=== PATIENT | female | born 1940 | race Caucasian/White ===

== ENCOUNTER 2020-09-17 00:25 | Emergency (ER) | payer MEDICARE, OTHER, SELFPAY ==
[2020-09-17] VITALS (32 sets, daily range): BP systolic 76–103; BP diastolic 36–57; PULSE 85–117; RESP 18–32; TEMP 35.6–36.5; O2SAT 92–98
--- NOTE | ~2020-09-17 | XR_ITS ---
EXAMINATION: XR chest 1V portable DATE: 09/17/2020 01:30 INDICATION: Shortness of breath TECHNIQUE: frontal view of the chest was obtained. COMPARISON: Chest radiograph dated 06/21/2017 FINDINGS: Small amount of free intraperitoneal gas below the mildly elevated right hemidiaphragm. Mild bibasila r opacities which could represent atelectasis and/or pneumonia. Nodular opacity in the right midlung zone projected between the posterior right fifth and sixth ribs. Calcified right lower lobe nodule an d calcified right hilar lymph nodes consistent with old granulomatous disease. No pleural effusion or pneumothorax. The cardiomediastinal silhouette is normal. IMPRESSION: 1. Free intraperitoneal gas below the right hemidiaphragm. See subsequent CT report at 2:35 AM for fu rther detail. 2. Bibasilar opacities which could represent atelectasis and/or pneumonia. 3. Small nodular opacity in the right midlung zone which could also be infectious/inflammatory in esvin ology although differential includes primary bronchogenic is normal. Consider either follow-up to res olution or chest CT for further evaluation. Reviewed, dictated and finalized at location A. ER OUT IMPRESSION: 1. Free intraperitoneal gas below the right hemidiaphragm. See subsequent CT re port at 2:35 AM for further detail. 2. Bibasilar opacities which could represent atelectasis and/or pneumonia. 3. Small nodular opacity in the right midlung zone which could also be infectio us/inflammatory in etiology although differential includes primary bronchogenic is normal. Consider either follow-up to resolution or chest CT for further mary luation.
--- NOTE | ~2020-09-17 | CT_ITS ---
EXAMINATION: CT abdomen pelvis wo con DATE: 09/17/2020 02:39 INDICATION: Perforated bowel with free intraperitoneal gas seen on chest radiograph. TECHNIQUE: Computed tomography (CT) of the abdomen and pelvis was performed without intravenous contr ast. Automated exposure control and iterative reconstruction technique were employed. The dose-length product was 558.07 mGy-cm. COMPARISON: 01/19/2018 FINDINGS: 12 mm subpleural right lower lobe nodule with some surrounding groundglass opacity most likely infect ious/inflammatory in etiology although malignancy either primary or metastatic is not excludable. Ate lectasis in the lingula and in the dependent bilateral lower lobes. Calcified right lower lobe nodule and calcified right hilar lymph nodes consistent with old granulomatous disease. Heart size is yvette l. Atherosclerotic coronary artery calcification and aortic valve calcific lesion. No pericardial or pleural effusion. Small sliding-type hiatal hernia. Cholecystectomy clips the gallbladder fossa. A couple well-defined low-attenuation hepatic cysts the largest measuring 1.8 cm in the right hepatic lobe. No interval change in an 8 mm slightly hyperdense nodule along the posterior margin of the right hepatic lobe which given greater than 2 years of stab ility is most readily benign. Multiple splenic calcification is consistent with old granulomatous dis ease. Pancreas and bilateral adrenal glands are normal. 1.8 cm low-attenuation left renal cyst and mi llimeter hyperdense proteinaceous/hemorrhagic cyst at the left kidney. There are additional lesions i n both kidneys measuring 12 mm on the left and 8 mm on the right which are of intermediate attenuatio n most likely additional proteinaceous/hemorrhagic cyst although differential includes solid neoplasm such as renal cell carcinoma. There is mild colonic diverticulosis with a sigmoid predominance. There is wall thickening at the pro ximal sigmoid colon with surrounding inflammatory stranding consistent with diverticulitis. There is small amount free intraperitoneal gas and fluid scattered throughout the abdomen and pelvis consisten t with perforated diverticulitis. No abscess. Bladder is normal. The uterus is not identified and has likely been surgically resected. There is scattered calcified atherosclerosis of the aorta and many of the other arteries. Mild scattered degenerative skeletal changes. IMPRESSION: 1. Perforated sigmoid diverticulitis with small amount of free intraperitoneal gas and fluid. No absc ess. 2. Nodular airspace disease in the right lower lobe most likely infectious/inflammatory in etiology a lthough differential includes malignancy either primary or metastatic. An additional nodular opacitie s seen in the right midlung zone on prior chest radiograph and would recommend dedicated chest CT for further evaluation and to establish baseline for any follow-up imaging. 3. A couple indeterminate bilateral renal lesions, the largest on the left measuring 12 mm which are unchanged 2018, most likely proteinaceous/hemorrhagic cyst although differential includes very slowly growing renal cell carcinoma. Depending on how this would affect clinical management could consider follow-up pre and postcontrast MRI or CT for further evaluation. 4. Small sliding-type hiatal hernia. Reviewed, dictated and finalized at location A. [facility] IMPRESSION: 1. Perforated sigmoid diverticulitis with small amount of free intraperitoneal gas and fluid. No abscess. 2. Nodular airspace disease in the right lower lobe most likely infectious/infl ammatory in etiology although differential includes malignancy either primary o r metastatic. An additional nodular opacities seen in the right midlung zone on prior chest radiograph and would recommend
--- NOTE | 2020-09-17 00:50 | ECG_ITS ---
Measurements Intervals [place] Rate: 89 P: 56 CA: 184 QRS: -19 QRSD: 104 T: 53 QT: 352 QTc: 429 Interpretive Statements SINUS RHYTHM EARLY PRECORDIAL R/S TRANSITION MINIMAL Q WAVES- LATERAL LEADS INFERIOR INFARCT, AGE INDETERMINATE ABNORMAL ECG Electronically Signed On 09-17-2020 6:54:52 GRAIN [employer]ER by Tobi Tellez D.O.
--- NOTE | 2020-09-17 00:59 | ED.WEAKNESS ---
HPI - Weakness General Chief complaint: Weakness Stated complaint: Weakness Time Seen by Provider: 09/17/20 00:45 Source: patient and family Mode of arrival: ambulatory Limitations: altered mental status History of Present Illness HPI Narrative: She evidently has been somewhat slow to respond today to family. She took a tramadol 50mg early this am, and has had a more slow, but relatively clear speech since then. She evidently was weak enough that she was stuck on the toilet for quite some time, too weak to get up. She is brought in by family who recognized she was not feeling well. MD Complaint: generalized weakness Duration: progressively worsening Location: generalized Severity: moderate Relieving factors: none Exacerbating factors: none Context: new medication Associated symptoms: other (she denies any chest pain today) Related Data Home Medications Medication Instructions Recorded Confirmed aspirin 81 mg tablet,delayed 81 mg PO DAILY 07/09/19 09/17/20 release atorvastatin 40 mg tablet 40 mg PO DAILY 07/09/19 09/17/20 diclofenac sodium 75 mg 75 mg PO BID 07/09/19 09/17/20 tablet,delayed release alendronate 70 mg PO WEEKLY 09/17/20 09/17/20 calcium carbonate-vitamin D3 [All 1 tablet PO BID 09/17/20 09/17/20 Day Calcium] cyanocobalamin (vitamin B-12) 500 mcg PO DAILY 09/17/20 09/17/20 [Vitamin B-12] tramadol 50 mg PO PRN PRN 09/17/20 09/17/20 Allergies Allergy/AdvReac Type Severity Reaction Status Date / Time alendronate sodium [Fosamax] Allergy Unknown Unknown Verified 07/09/19 12:36 codeine Allergy Unknown Unknown Verified 07/09/19 12:36 Review of Systems Constitutional: Comments: Evidently she had chills the morning of 09/16/2019 Eyes: Eyes: Reports no additional eye complaints ENT: Reports system reviewed and no additional complaints, except as documented Cardiovascular: Cardiovascular: Reports no additional cardiovascular complaints Respiratory: Respiratory: Reports dyspnea Gastrointestinal: Gastrointestinal: Reports no additional gastrointestinal complaints Genitourinary: Genitourinary: Reports no additional female genitourinary complaints Musculoskeletal: Musculoskeletal: Reports no additional musculoskeletal complaints Integumentary/Breasts: Skin/Breast: Reports system reviewed and no additional complaints, except as docu Neurologic: Reports system reviewed and no additional complaints, except as documented Psychiatric: Psychiatric: Reports no additional psychiatric complaints Endocrine: Endocrine: Reports no additional endocrine complaints Hematologic/Lymphatic: Hematologic/Lymphatic: Reports no additional hematologic/lymphatic complaints Allergic/Immunologic: Allergic/Immunologic: Reports no additional allergic/immunologic complaints PMF Past Medical History Medical History GERD (gastroesophageal reflux disease) Hyperlipidemia Hypertension Hypothyroidism Osteoarthritis Osteoporosis Surgical History Surgical History History of cholecystectomy History of hysterectomy History of tubal ligation Family History Family History Sister Family history of pancreatic cancer Breast cancer Mother Familial Alzheimer's disease of late onset Social History Social History Smoking status: Never smoker Additional living arrangements comments: . Gender identity (if verbalized by the patient): Female Exam Const: Orientation/consciousness: patient oriented x3 Limitations: altered mental status Eyes: Conjunctivae: conjunctivae normal Neck: Neck: normal visual inspection Chest: Chest palpation & inspection: normal inspection of the chest Resp: Effort & Inspection: normal respiratory effort Auscultation: clear to auscultation bilaterally Cardio: Rate: re
[2020-09-17] MEDS: SODIUM CHLORIDE 0.9% IV 1,000 ML 500 ML IV CONT (01:10)
[2020-09-17 01:31] LABS: Hematocrit 31.8 % (35.0-42.0); Hemoglobin 10.6 g/dL (11.7-13.8); Mean Corpuscular HGB Conc 33.3 g/dL (32.0-36.0); Mean Platelet Volume 9.1 fl (9.2-11.8); Platelet Count Result 372 K/mm3 (150-420); Red Blood Count 3.42 M/mm3 (4.20-5.40); Red Cell Distribution Width 13.5 % (11.6-14.4); White Blood Count 18.7 K/mm3 (4.8-10.8)
[2020-09-17 01:37] LABS: Alanine Aminotransferase 9 U/L (14-59); Albumin Level 2.5 g/dL (3.4-5.0); Alkaline Phosphatase 74 U/L (46-116); Anion Gap 14 mmol/L (8-16); Aspartate Amino Transferase 21 U/L (15-37); BNP 114 pg/mL (0-100); Blood Urea Nitrogen 48 mg/dL (7-18); Calcium 10.2 mg/dL (8.5-10.1); Carbon Dioxide 23 mmol/L (21-32); Chloride 93 mmol/L (98-108); Estimated CRCL calculation 16 ml/min; Estimated Glomerular Filt Rate 17; Glucose 106 mg/dL (70-99); Osmolality Calculated 282 mOsm/kg (285-295); Phosphorus 1.6 mg/dL (2.6-4.7); Potassium 3.2 mmol/L (3.5-5.1); Sodium 130 mmol/L (136-145); Total Protein 7.2 g/dL (6.4-8.2); Troponin I 18.3 ng/L (0.00-60.4)
[2020-09-17 01:44] LABS: Lactic Acid Reflex 3.8 mmol/L (0.4-2.0)
[2020-09-17 01:49] LABS: Band Neutrophils Percent 12 % (0-6); Basophils Percent Manual 0 % (0-1); Eosinophils Percent Manual 0 % (1-6); Lymphocytes Absolute Manual 0.37 K/mm3 (1.1-4.5); Lymphocytes Percent Manual 2 % (18-44); Metamyelocytes Percent 3 %; Monocytes Absolute Manual 0.37 K/mm3 (0.1-0.90); Monocytes Percent Manual 2 % (3-9); Neutrophils Absolute Manual 17.39 K/mm3 (1.7-7.2); Neutrophils Percent Manual 81 % (46-73); Platelet Estimate Adequate (Adequate)
[2020-09-17 01:50] LABS: Magnesium 0.7 mg/dL (1.8-2.4)
[2020-09-17] MEDS: MAGNESIUM SULF 2 GM/WATER 50ML 2 GM/50 ML BAG IVPB (02:03)
--- NOTE | 2020-09-17 02:05 | PC.NURSE ---
ERP spoke c family and pt. about test results and Xray results. Pt. wishes transfer to [facility] for further care.
[2020-09-17 02:09] LABS: Add Urine Microscopic? NO; Appearance Urine Clear (Clear); Bilirubin Urine Negative (Negative); Blood Urine Negative (Negative); Color Urine Yellow (Yellow); Glucose Urine UA Negative (Negative); Ketones Urine Negative (Negative); Leukocyte Esterase Ur Negative (Negative); Nitrate Urine Negative (Negative); Protein Urine Negative (Negative); Urobilinogen Urine 0.2 mg/dL (0.2-1.0)
[2020-09-17 02:13] LABS: SARS-CoV-2 Ag Negative (Negative)
--- NOTE | 2020-09-17 02:25 | PC.NURSE ---
No beds available at [facility]. and family request transfer to [place] if bed available.
[2020-09-17 02:27] LABS: Erythrocyte Sedimentation Rate 56 mm/hr (0-20)
[2020-09-17] MEDS: SODIUM CHLORIDE 0.9% IV 1,000 ML 999 ML IV CONT (02:46)
--- NOTE | 2020-09-17 02:47 | PC.NURSE ---
Call back from [facility], no bed availability. Pt. and family request transfer to [facility]. ERP speaking c Dr. Tanner and he will accept for transfer. Will await callback.
[2020-09-17] MEDS: metroNIDAZOLE 500 MG/ISO 100ML 500 MG/100 ML BAG 100 MG IVPB (02:58)
--- NOTE | 2020-09-17 03:30 | PC.NURSE ---
Dr. Tanner accepts for transfer. Awaiting call back for bed assignment and report.
[2020-09-17] MEDS: SODIUM CHLORIDE 0.9% IV 1,000 ML 200 ML IV CONT (04:04)
--- NOTE | 2020-09-17 04:25 | PC.NURSE ---
Report given to [facility] for transfer.
== END 2020-09-17 04:35 | disposition short-term general hospital (02) ==
PROVIDERS: Emergency Provider Emergency Medicine
DX: K57.20 Diverticulitis of large intestine with perforation and abscess without bleeding (principal); I10 Essential (primary) hypertension; K21.9 Gastro-esophageal reflux disease without esophagitis; E78.5 Hyperlipidemia, unspecified; E03.9 Hypothyroidism, unspecified; M81.0 Age-related osteoporosis without current pathological fracture; M19.90 Unspecified osteoarthritis, unspecified site; R06.00 Dyspnea, unspecified; Z90.710 Acquired absence of both cervix and uterus; Z90.49 Acquired absence of other specified parts of digestive tract; Z80.0 Family history of malignant neoplasm of digestive organs; Z80.3 Family history of malignant neoplasm of breast; Z20.822 Contact with and (suspected) exposure to COVID-19
CPT/HCPCS: 36415; 51701; 71045; 74176; 80053; 81003; 83605; 83735; 83880; 84100; 84484; 85025; 85652; 87040; 87426; 93005; 96361; 96365; 96367; 99285; C9803; J2543; J3475; J7030